=== PATIENT | female | born 1980 | race Caucasian/White ===

== ENCOUNTER 2020-08-31 08:18 | Emergency (ER) | payer MEDICAID ==
[~2020-08-31] VITALS: Ht 175.3 cm; Wt 61.4 kg
[~2020-08-31 08:18] MED LIST: HYDR1TAB PO
--- NOTE | 2020-08-31 10:01 | NUR ---
dr orlando in room and examined chest in my prescence. discussing that her pectoralis muscles feel stuck and right upper chest ribs not moving
[2020-08-31] MEDS ORDERED: ketorolac trometh. 30mg/ml inj. IV ONE (10:10)
[2020-08-31 10:31] VITALS: BP 120/70
== END 2020-08-31 10:39 | disposition home or self-care (01) ==
LOC: ER 08:20
DX: R07.89 Other chest pain (principal); Z90.89 Acquired absence of other organs; Z79.899 Other long term (current) drug therapy
CPT/HCPCS: 96374; 99283; J1885

== ENCOUNTER 2021-08-28 12:49 | Emergency (ER) | payer MEDICAID ==
[~2021-08-28] VITALS: Ht 162.6 cm; Wt 61.5 kg
[2021-08-28] MEDS ORDERED: FLUT16SP2 BOTHNARES (15:34)
[2021-08-28] MEDS ORDERED: AMOX-117 PO (15:34)
[2021-08-28] MEDS ORDERED: SODI30SP3 BOTHNARES (15:34)
[2021-08-28 15:41] VITALS: BP 113/73
== END 2021-08-28 15:42 | disposition home or self-care (01) ==
LOC: ER 12:49
DX: J32.9 Chronic sinusitis, unspecified (principal); H66.93 Otitis media, unspecified, bilateral; D64.9 Anemia, unspecified; Z88.0 Allergy status to penicillin; Z79.899 Other long term (current) drug therapy
CPT/HCPCS: 99283